=== PATIENT | female | born 1985 | race Caucasian/White ===

== ENCOUNTER 2017-09-06 14:28 | Day surgery (SDC) | payer OTHER ==
[2017-09-06] MEDS ORDERED: MIDAZOLAM 1 MG/ML 2 ML INJ (16:25)
[2017-09-06] MEDS ORDERED: LIDOCAINE 2% (SDV) 5 ML INJ (16:25)
[2017-09-06] MEDS ORDERED: PROPOFOL 40 ML (16:25)
[2017-09-06] MEDS ORDERED: PROPOFOL 20 ML (17:21)
== END 2017-09-06 18:29 | disposition home or self-care (01) ==
LOC: GIL 14:28
DX: K29.60 Other gastritis without bleeding (principal); K64.8 Other hemorrhoids; E66.9 Obesity, unspecified; Z68.35 Body mass index [BMI] 35.0-35.9, adult
CPT/HCPCS: 43239; 84703; 87081; 88305

== ENCOUNTER 2018-03-19 18:52 | Emergency (ER) | payer OTHER ==
[2018-03-19 21:21] LABS: ADD MAN DIFF? NO
[2018-03-19 21:26] LABS: BASOPHIL # 0.1 10^3/ul (0.0-0.1); BASOPHILS % 0.5 % (0.0-2.0); EOSINOPHILS # 0.1 10^3/ul (0.0-0.5); EOSINOPHILS % 0.8 % (0.0-7.0); HEMATOCRIT 40.1 % (37.0-47.0); HEMOGLOBIN 13.4 g/dl (12.0-16.0); LYMPHOCYTES # 2.9 10^3/ul (0.8-2.9); LYMPHOCYTES % 22.4 % (15.0-51.0); MEAN CORPUSCULAR HEMOGLOBIN 28.8 pg (29.0-33.0); MEAN CORPUSCULAR HGB CONC 33.4 g/dl (32.0-37.0); MEAN CORPUSCULAR VOLUME 86.2 fl (82.0-101.0); MEAN PLATELET VOLUME 10.6 fl (7.4-10.4); MONOCYTE # 0.9 10^3/ul (0.3-0.9); MONOCYTES % 6.6 % (0.0-11.0); NEUTROPHILS % 69.2 % (39.0-77.0); PLATELET COUNT 288 10^3/UL (140-415); RED BLOOD COUNT 4.65 10^6/ul (4.20-5.40); RED CELL DISTRIBUTION WIDTH 13.3 % (11.5-14.5)
[2018-03-19 21:26] LABS: WHITE BLOOD COUNT 12.9 10^3/ul (4.8-10.8)
[2018-03-19 21:37] LABS: ADD UMIC YES; UR ASCORBIC ACID NEGATIVE (NEGATIVE); UR BILIRUBIN (Dip) NEGATIVE (NEGATIVE); UR BLOOD (Dip) NEGATIVE (NEGATIVE); UR CLARITY CLEAR (CLEAR); UR COLOR YELLOW (YELLOW); UR GLUCOSE (Dip) NEGATIVE (NEGATIVE); UR KETONES (Dip) TRACE mg/dL (NEGATIVE); UR LEUKOCYTE ESTERASE (Dip) TRACE Leu/ul (NEGATIVE); UR NITRITE (Dip) NEGATIVE (NEGATIVE); UR RBC 1 /HPF (0-5); UR SPECIFIC GRAVITY (Dip) 1.014 (1.003-1.030); UR SQUAMOUS EPITHELIAL CELL FEW /HPF (FEW); UR TOTAL PROTEIN (Dip) NEGATIVE (NEGATIVE); UR UROBILINOGEN (Dip) NEGATIVE (NEGATIVE); UR WBC 2 /HPF (0-5)
== END 2018-03-19 23:17 | disposition home or self-care (01) ==
LOC: FTE 18:52
DX: O20.9 Hemorrhage in early pregnancy, unspecified (principal); O99.211 Obesity complicating pregnancy, first trimester; E66.09 Other obesity due to excess calories; Z3A.10 10 weeks gestation of pregnancy
CPT/HCPCS: 76801; 81001; 81025; 84702; 85025; 86900; 86901; 99284-25

== ENCOUNTER 2018-10-04 08:00 | Inpatient (IN) | payer OTHER ==
[2018-10-04] MEDS ORDERED: LIDOCAINE 1% (MPF) 30 ML INJ INJ (09:00)
[2018-10-04] MEDS ORDERED: CARBOPROST 250 MCG INJ IM (09:00)
[2018-10-04] MEDS ORDERED: MISOPROSTOL 200 MCG TAB PR (09:00)
[2018-10-04] MEDS ORDERED: OXYCODONE/ACETAMINOPHEN (5/325) TAB PO (09:00)
[2018-10-04] MEDS ORDERED: OXYTOCIN 30 UNITS/LR 500 ML IV (09:00)
[2018-10-04] MEDS ORDERED: IBUPROFEN 600 MG TAB PO (09:00)
[2018-10-04] MEDS ORDERED: METHYLERGONOVINE 0.2 MG INJ IM (09:00)
[2018-10-04 09:08] LABS: ADD MAN DIFF? NO
[2018-10-04 09:14] LABS: WHITE BLOOD COUNT 8.2 10^3/ul (4.8-10.8)
[2018-10-04 09:14] LABS: BASOPHILS % 0.2 % (0.0-2.0); EOSINOPHILS % 0.4 % (0.0-7.0); HEMATOCRIT 36.2 % (37.0-47.0); LYMPHOCYTES # 1.5 10^3/ul (0.8-2.9); LYMPHOCYTES % 18.2 % (15.0-51.0); MEAN CORPUSCULAR HEMOGLOBIN 28.6 pg (29.0-33.0); MEAN CORPUSCULAR HGB CONC 33.1 g/dl (32.0-37.0); MEAN CORPUSCULAR VOLUME 86.4 fl (82.0-101.0); MEAN PLATELET VOLUME 12.7 fl (7.4-10.4); MONOCYTE # 0.6 10^3/ul (0.3-0.9); NEUTROPHILS % 73.5 % (39.0-77.0); PLATELET COUNT 167 10^3/UL (140-415); RED BLOOD COUNT 4.19 10^6/ul (4.20-5.40); RED CELL DISTRIBUTION WIDTH 14.8 % (11.5-14.5)
[2018-10-04 09:30] LABS: URIC ACID 6.5 mg/dl (3.1-7.9)
[2018-10-04 09:30] LABS: ADD UMIC YES; UR ASCORBIC ACID NEGATIVE (NEGATIVE); UR BILIRUBIN (Dip) NEGATIVE (NEGATIVE); UR BLOOD (Dip) NEGATIVE (NEGATIVE); UR CLARITY SLIGHTLY CLOUDY (CLEAR); UR COLOR YELLOW (YELLOW); UR GLUCOSE (Dip) NEGATIVE (NEGATIVE); UR KETONES (Dip) 1+ mg/dL (NEGATIVE); UR LEUKOCYTE ESTERASE (Dip) 2+ Leu/ul (NEGATIVE); UR MUCUS FEW /HPF (NONE SEEN); UR NITRITE (Dip) NEGATIVE (NEGATIVE); UR RBC 3 /HPF (0-5); UR SPECIFIC GRAVITY (Dip) 1.025 (1.003-1.030); UR SQUAMOUS EPITHELIAL CELL MANY /HPF (FEW); UR TOTAL PROTEIN (Dip) 1+ mg/dl (NEGATIVE); UR UROBILINOGEN (Dip) NEGATIVE (NEGATIVE); UR WBC 58 /HPF (0-5)
[2018-10-04 09:32] LABS: ALANINE AMINOTRANSFERASE 11 IU/L (13-69); ALBUMIN 3.6 g/dl (3.3-4.9); ALBUMIN/GLOBULIN RATIO 1.12; ALKALINE PHOSPHATASE 141 IU/L (42-121); ANION GAP 13 (5-13); ASPARTATE AMINO TRANSFERASE 22 IU/L (15-46); BILIRUBIN,INDIRECT 0.2 mg/dl (0-1.1); BILIRUBIN,TOTAL 0.2 mg/dl (0.2-1.3); BLOOD UREA NITROGEN 12 mg/dl (7-20); CALCIUM 9.1 mg/dl (8.4-10.2); CARBON DIOXIDE 18 mmol/L (21-31); CHLORIDE 104 mmol/L (97-110); CREATININE 0.42 mg/dl (0.44-1.00); Estimated GFR > 60 mL/min (>60); GLUCOSE 145 mg/dl (70-220); POTASSIUM 3.8 mmol/L (3.5-5.1); SODIUM 135 mmol/L (135-144); TOTAL PROTEIN 6.8 g/dl (6.1-8.1)
[2018-10-04 09:39] LABS: INR 0.89; PROTIME 12.1 Sec (11.9-14.9); PT RATIO 0.9
[2018-10-04] MEDS: AMPICILLIN 2 GM/NS (PMX) 100 ML IV (09:42)
[2018-10-04] MEDS: LACTATED RINGER'S 1,000 ML IV ×2 (09:46→18:16)
[2018-10-04 10:02] LABS: HEPATITIS B SURFACE ANTIGEN NEGATIVE (NEGATIVE)
[2018-10-04] MEDS: DEXTROSE 5%-LR 1,000 ML IV ×2 (10:57→21:37)
[2018-10-04] MEDS ORDERED: MISOPROSTOL 50 MCG CAPSULE PO (11:00)
[2018-10-04] MEDS: MISOPROSTOL 50 MCG CAPSULE PO ×2 (11:38→17:00)
[2018-10-04] MEDS: AMPICILLIN 1 GM/NS (PMX) 50 ML IV ×3 (14:01→22:06)
[2018-10-04 15:05] LABS: RAPID PLASMA REAGIN NONREACTIVE (NR)
[2018-10-04] MEDS: OXYTOCIN 30 UNITS/LR 500 ML IV ×3 (15:29→23:40)
[2018-10-04] MEDS ORDERED: FENTAnyl 2MCG/ML-ROPIV 0.2% 100 ML (17:55)
[2018-10-04] MEDS ORDERED: NALOXONE (0.4 MG/ML) INJ IV (18:30)
[2018-10-04] MEDS: FENTAnyl 2MCG/ML-ROPIV 0.2% 100 ML BAG EPI (18:52)
[2018-10-04] MEDS: MINERAL OIL LIGHT 10 ML VIAL TOP (22:00)
[2018-10-04] MEDS: CEFAZOLIN 2 GM/50 ML (PMX) 50 ML IVPB (23:24)
[2018-10-05] MEDS ORDERED: WITCH HAZEL/GLYCERIN PAD PR (01:30)
[2018-10-05] MEDS ORDERED: CARBOPROST 250 MCG INJ IM (01:30)
[2018-10-05] MEDS ORDERED: HYDROCODONE/APAP (5/325) TAB PO (01:30)
[2018-10-05] MEDS ORDERED: OXYTOCIN 30 UNITS/LR 500 ML IV (01:30)
[2018-10-05] MEDS ORDERED: DIBUCAINE 1% 30 GM OINT TOP (01:30)
[2018-10-05] MEDS ORDERED: BENZOCAINE 20% 56 ML SPRAY TOP (01:30)
[2018-10-05] MEDS ORDERED: MISOPROSTOL 200 MCG TAB PR (01:30)
[2018-10-05] MEDS ORDERED: METHYLERGONOVINE 0.2 MG INJ IM (01:30)
[2018-10-05] MEDS: ACETAMINOPHEN 325 MG TAB PO (01:40)
[2018-10-05] MEDS: LACTATED RINGER'S 1,000 ML IV* ×3 (03:57→21:31)
[2018-10-05] MEDS: IBUPROFEN 600 MG TAB PO ×3 (06:11→18:02)
[2018-10-05 08:08] LABS: ADD MAN DIFF? NO
[2018-10-05 08:10] LABS: WHITE BLOOD COUNT 13.2 10^3/ul (4.8-10.8)
[2018-10-05 08:10] LABS: BASOPHILS % 0.2 % (0.0-2.0); HEMATOCRIT 33.3 % (37.0-47.0); LYMPHOCYTES # 1.2 10^3/ul (0.8-2.9); LYMPHOCYTES % 9.2 % (15.0-51.0); MEAN CORPUSCULAR HEMOGLOBIN 28.6 pg (29.0-33.0); MEAN CORPUSCULAR VOLUME 86.5 fl (82.0-101.0); MEAN PLATELET VOLUME 12.8 fl (7.4-10.4); MONOCYTE # 1.3 10^3/ul (0.3-0.9); MONOCYTES % 9.8 % (0.0-11.0); NEUTROPHIL # 10.6 10^3/ul (1.6-7.5); NEUTROPHILS % 80.4 % (39.0-77.0); PLATELET COUNT 161 10^3/UL (140-415); RED BLOOD COUNT 3.85 10^6/ul (4.20-5.40); RED CELL DISTRIBUTION WIDTH 14.8 % (11.5-14.5)
[2018-10-05] MEDS: SENNA/DOCUSATE NA (8.6MG/50MG) TAB PO ×2 (09:35→21:00)
[2018-10-06] MEDS: IBUPROFEN 600 MG TAB PO ×2 (00:14→06:27)
[2018-10-06] MEDS: LACTATED RINGER'S 1,000 ML IV* (01:24)
[2018-10-06] MEDS: SENNA/DOCUSATE NA (8.6MG/50MG) TAB PO (09:00)
[2018-10-06] MEDS: DIPHTH/TET/ACEL PERTUSS (ADULT) 0.5 ML VIAL IM* (09:09)
== END 2018-10-06 12:20 | disposition home or self-care (01) | DRG 807 ==
LOC: L-D 08:00 → PP1 10-05 08:26
PROC: 10E0XZZ Delivery of Products of Conception, External Approach (ICD-10-PCS; principal; 2018-10-04 08:00)
PROC: 0KQM0ZZ Repair Perineum Muscle, Open Approach (ICD-10-PCS; 2018-10-04 08:00)
PROC: 3E033VJ Introduction of Other Hormone into Peripheral Vein, Percutaneous Approach (ICD-10-PCS; 2018-10-04 08:00)
DX: O24.429 Gestational diabetes mellitus in childbirth, unspecified control (principal); Z37.0 Single live birth; O66.0 Obstructed labor due to shoulder dystocia; O70.1 Second degree perineal laceration during delivery; Z3A.39 39 weeks gestation of pregnancy
CPT/HCPCS: 76815; 80053; 81001; 82962; 84560; 85025; 85610; 85730; 86592; 86850; 86900; 86901; 87340; 99464

== ENCOUNTER 2018-10-22 18:17 | Emergency (ER) | payer SELFPAY, OTHER | END 2018-10-22 18:45 | disposition left against medical advice (07) | LOC: E/R 18:17 | DX: Z53.21 Procedure and treatment not carried out due to patient leaving prior to being seen by health care provider (principal) ==